=== PATIENT | female | born 1985 | race Caucasian/White ===

== ENCOUNTER 2017-12-10 15:58 | Outpatient (CLI) | payer SELFPAY ==
[2017-12-10 17:23] LABS: Platelet Count 372 X10^3/uL (150-400)
[2017-12-10 17:34] LABS: Aspartate Aminotransferase 19 IU/L (14-36); BUN Creatinine Ratio 18.6 (6-22); Blood Urea Nitrogen 13 mg/dL (7-17); Estimated Glomerular Filt Rate > 60.0 mL/min (>60); Uric Acid 5.6 mg/dL (2.5-6.2)
== END 2017-12-10 18:00 | disposition home or self-care (01) ==
LOC: OB 12-12 14:39
PROVIDERS: PCP Family Medicine; Visit Provider Obstetrics & Gynecology
DX: Z34.03 Encounter for supervision of normal first pregnancy, third trimester (principal); Z3A.36 36 weeks gestation of pregnancy; R51 Headache
CPT/HCPCS: 59025; 59050; 84450; 84550; 85049; G0378; G0379

== ENCOUNTER → 2017-12-13 15:52 | Outpatient (CLI) | payer SELFPAY ==
[2017-12-14 16:36] LABS: Strep Grp B PCR POS for Grp B Strep
== END ==
PROVIDERS: PCP Family Medicine; Visit Provider Specialist
DX: Z34.03 Encounter for supervision of normal first pregnancy, third trimester (principal)
CPT/HCPCS: 87653

== ENCOUNTER 2017-12-18 10:53 | Observation (INO) | payer SELFPAY ==
[2017-12-18] MEDS: TERBUTALINE 1 MG/ML VIAL 0.25 MG SUBCUT (12:00)
--- NOTE | 2017-12-18 12:44 | PM.PROC.1 ---
Procedures Date/Time Date of procedure: 12/18/17 Time of procedure: 12:13 General Procedure description: Patient comes in for attempt at external version. This is her 1st child and she has an EDC of 01/05/2018. She is 37 weeks 3 days. Consent form was reviewed with the patient, as signed, questions answered. Patient received terbutaline subcutaneously. Ultrasound was performed and confirmed breech. Attempt to externally turn the baby for about 15 sec with checking the heart rate of the baby in between x3 was unsuccessful at turning the baby. Patient tolerated the procedure. She will be discharged home after an hour of monitoring. Precautions to call if she has decreased movement, rupture membranes, vaginal bleeding, cramping. We will schedule a section. Complications: none
--- NOTE | 2017-12-18 12:47 | P.PCN_ITS ---
Procedures Date/Time Date of procedure: 12/18/17 Time of procedure: 12:13 General Procedure description: Patient comes in for attempt at external version. This is her 1st child and she has an EDC of 01/05/2018. She is 37 weeks 3 days. Consent form was reviewed with the patient, as signed, questions answered. Patient received terbutaline subcutaneously. Ultrasound was performed and confirmed breech. Attempt to externally turn the baby for about 15 sec with checking the heart rate of the baby in between x3 was unsuccessful at turning the baby. Patient tolerated the procedure. She will be discharged home after an hour of monitoring. Precautions to call if she has decreased movement , rupture membranes, vaginal bleeding, cramping. We will schedule a section. Complications: none
== END 2017-12-18 13:51 | disposition home or self-care (01) ==
PROVIDERS: Admitting Provider Specialist; PCP Family Medicine; Visit Provider Specialist
DX: O32.1XX0 Maternal care for breech presentation, not applicable or unspecified (principal); Z3A.36 36 weeks gestation of pregnancy
CPT/HCPCS: 59025; 59050; 59412; 76815; 96372; G0378; G0379

== ENCOUNTER 2018-01-06 05:49 | Inpatient (IN) | payer SELFPAY ==
[2018-01-06] VITALS (7 sets, daily range): BP systolic 112–129; BP diastolic 64–70; PULSE 71–78; RESP 14–16; TEMP 36.1; O2SAT 95–99
[2018-01-06 07:06] LABS: Add Manual Diff / Slide Review NO; Basophils Percent Auto 0.3 % (0-2); Eosinophils Percent Auto 2.7 % (2-4); Hematocrit 35.2 % (36-46); Hemoglobin 11.7 g/dL (12.0-16.0); Lymphocytes Percent Auto 18.7 % (25-40); Mean Corpuscular HGB Conc 33.2 % (30-36); Mean Corpuscular Hemoglobin 30.2 PG (26-34); Mean Corpuscular Volume 90.9 fL (80-100); Monocytes Percent Auto 5.7 % (3-14); Neutrophils Absolute Auto 9300 /uL (3000-5900); Neutrophils Percent Auto 72.6 % (50-75); Platelet Count 393 X10^3/uL (150-400); Red Blood Cell Count 3.87 X10^6/uL (4.0-5.2); Red Cell Distribution Width 14.3 % (11.6-14.8); White Blood Cell Count 12.8 X10^3/uL (4.5-11.0)
--- NOTE | 2018-01-06 07:29 | PM.OBHP.1 ---
OB HPI Date/Time Date of admission: 01/06/18 Date Patient Seen: 01/06/18 Time Patient Seen: 07:30 History of Present Condition Chief complaint: [id number] : 1 Para: 0 Estimated Date of Delivery: 01/05/18 Narrative: Lulu Busby is a 32 year old female admitted for section at term for breech presentation Indications Operative indications ( section): malpresentation History of Present care: good care Dating criteria: LMP confirmed by 2nd trimester US Ultrasounds: normal mid trimester US Obstetrical complications: none Medical complications: none Preadmission Labs Blood type: O (+) positive -: Antibody screen: negative, GBS status: positive, HBsAG: negative, HIV: negative and RPR/VDLR: negative -: Chlamydia screen: not detected and Gonorrhea screen: not detected -: Rubella: immune PAP: Normal Cell-free DNA: Normal Fasting blood glucose: 98 Evaluation Evaluation Laboratory results: Laboratory Tests 01/06/18 06:45 WBC 12.8 H RBC 3.87 L Hgb 11.7 L Hct 35.2 L MCV 90.9 MCH 30.2 MCHC 33.2 RDW 14.3 Plt Count 393 Neut % (Auto) 72.6 Lymph % (Auto) 18.7 L [place] % (Auto) 5.7 Eos % (Auto) 2.7 Baso % (Auto) 0.3 Neut # (Auto) 9300 H PFSH Medical History Anxiety (Acute) Meds Allergies Allergy/AdvReac Type Severity Reaction Status Date / Time No Known Drug Allergies Allergy Verified 01/06/18 06:37 Review of Systems Review of Systems All systems reviewed & are unremarkable except as noted in HPI and below Exam Vital Signs (past 8 hours): Blood pressure 109/60, pulse 69 Narrative Exam Narrative: HEENT exam within normal limits. Lungs are clear to auscultation and percussion. Heart is regular rate and rhythm no S3-S4 or murmurs. Abdomen is soft, nontender. Fetus is still breech by ultrasound. Extremities without edema, nontender Objective Labs Result Diagrams: 01/06/18 06:45 Labs: Laboratory Results - last 24 hr 01/06/18 06:45 WBC 12.8 H RBC 3.87 L Hgb 11.7 L Hct 35.2 L MCV 90.9 MCH 30.2 MCHC 33.2 RDW 14.3 Plt Count 393 Neut % (Auto) 72.6 Lymph % (Auto) 18.7 L [place] % (Auto) 5.7 Eos % (Auto) 2.7 Baso % (Auto) 0.3 Neut # (Auto) 9300 H Assessment and Plan (1) malpresentation: Qualifiers: malpresentation type: breech Fetus number: single or unspecified fetus Qualified Code(s): O32.1XX0 - Maternal care for breech presentation, not applicable or unspecified Current visit: Yes Status: Acute (2) 39 weeks gestation of : Current visit: Yes Status: Acute Term with persistent breech presentation for planned primary low transverse section.
--- NOTE | 2018-01-06 07:32 | P.HPOB_ITS ---
OB HPI Date/Time Date of admission: 01/06/18 Date Patient Seen: 01/06/18 Time Patient Seen: 07:30 History of Present Condition Chief complaint: [id number] : 1 Para: 0 Estimated Date of Delivery: 01/05/18 Narrative: Lulu Busby is a 32 year old female admitted for section at term for breech presentation Indications Operative indications ( section): malpresentation History of Present care: good care Dating criteria: LMP confirmed by 2nd trimester US Ultrasounds: normal mid trimester US Obstetrical complications: none Medical complications: none Preadmission Labs Blood type: O (+) positive -: Antibody screen: negative, GBS status: positive, HBsAG: negative, HIV: negative and RPR/VDLR: negative -: Chlamydia screen: not detected and Gonorrhea screen: not detected -: Rubella: immune PAP: Normal Cell-free DNA: Normal Fasting blood glucose: 98 Evaluation Evaluation Laboratory results: Laboratory Tests 01/06/18 06:45 WBC 12.8 H RBC 3.87 L Hgb 11.7 L Hct 35.2 L MCV 90.9 MCH 30.2 MCHC 33.2 RDW 14.3 Plt Count 393 Neut % (Auto) 72.6 Lymph % (Auto) 18.7 L [place] % (Auto) 5.7 Eos % (Auto) 2.7 Baso % (Auto) 0.3 Neut # (Auto) 9300 H PFSH Medical History Anxiety (Acute) Meds Allergies Allergy/AdvReac Type Severity Reaction Status Date / Time No Known Drug Allergies Allergy Verified 01/06/18 06:37 Review of Systems Review of Systems All systems reviewed & are unremarkable except as noted in HPI and below Exam Vital Signs (past 8 hours): Blood pressure 109/60, pulse 69 Narrative Exam Narrative: HEENT exam within normal limits. Lungs are clear to auscultation and percussion. Heart is regular rate and rhythm no S3-S4 or murmurs. Abdomen is soft, nontender. Fetus is still breech by ultrasound. Extremities without edema, nontender Objective Labs Result Diagrams: 01/06/18 06:45 Labs: Laboratory Results - last 24 hr 01/06/18 06:45 WBC 12.8 H RBC 3.87 L Hgb 11.7 L Hct 35.2 L MCV 90.9 MCH 30.2 MCHC 33.2 RDW 14.3 Plt Count 393 Neut % (Auto) 72.6 Lymph % (Auto) 18.7 L [place] % (Auto) 5.7 Eos % (Auto) 2.7 Baso % (Auto) 0.3 Neut # (Auto) 9300 H Assessment and Plan (1) malpresentation: Qualifiers: malpresentation type: breech Fetus number: single or unspecified fetus Qualified Code(s): O32.1XX0 - Maternal care for breech presentation, not applicable or unspecified Current visit: Yes Status: Acute (2) 39 weeks gestation of : Current visit: Yes Status: Acute Term with persistent breech presentation for planned primary low transverse section.
[2018-01-06] MEDS: LACTATED RINGERS 1,000 ML 1000 ML IV (07:34)
[2018-01-06] MEDS: CEFAZOLIN 2 GM/100 ML FROZ.PIGGY IV (08:02)
--- NOTE | 2018-01-06 08:27 | SUR.OPER ---
Supine on Padded OR bed, head on pillow, safety belt at thigh, arms secured on padded arm boards at <90 degrees abduction. Bump under right buttock. Legs uncrossed with pillow under knees, gel pad to heels, tape over blanket to lower legs.
--- NOTE | 2018-01-06 08:36 | SUR.OPER ---
heart tones 132 preoperative. live male at 0832
--- NOTE | 2018-01-06 08:38 | SUR.OPER ---
apgars 8/9
--- NOTE | 2018-01-06 09:09 | PM.OP.1 ---
Operative Date/Time/Diagnoses Date of procedure: 01/06/18 Time of procedure: 09:09 Post-op diagnosis: same Procedure & Clinicians Procedure: Primary low-transverse section Same procedure as scheduled: Yes Indications: Term with breech presentation Surgeon: Monica Ashby Associate Financial Planner: Sarah Canales Anesthesia Type: Spinal Operative Notes Findings: Normal tubes ovaries and uterus. Viable male infant Apgars of 8, 9. Weight 7 lb 14 oz Closure Type: primary Specimen(s): none sent Estimated Blood Loss (mL): 300 Blood products transfused: none Procedure in detail: The patient was brought to the operating room where she underwent a spinal for anesthesia. She was placed in a supine position with a left lateral tilt. A Montalvo catheter was placed. Pulsatile stockings were placed and functional throughout the case. 2 g of Ancef were given IV prior to the incision. Warming was in place. The patient was prepped and draped in usual sterile fashion. A low transverse incision was made with a scalpel and the incision was carried down to the fascial layer which was incised transversely with scissors. The midline attachments are superiorly and inferiorly. Some bleeding was controlled Bovie. The rectus muscles were in the midline and the peritoneal incision was made with no damage to internal structures. The peritoneum was incised and superiorly and inferiorly. Bladder blade was placed and a bladder flap was developed and the bladder held away from the lower uterine segment. An incision was made in the uterus with the scalpel and the incision was extended with stretching. The buttocks was elevated out of the abdomen and with fundal pressure. The infant was held in a moist towel delivered to the shoulders. With rotation the arms were released. With fundal pressure the head delivered. The was bulb suctioned for meconium stained fluid and handed off to the warmer. Cord blood was collected. The placenta delivered spontaneously with traction. The uterus was cleaned with clean laps. The uterine incision was closed in 2 layers of 0 chromic suture the first a running locking layer the second an imbricating layer. The bladder peritoneum was repaired with 2-0 Polysorb suture. The gutters were cleaned of any remaining fluids and ovaries and tubes were observed to be normal. Adequate hemostasis was noted. The perineum was closed with 2-0 Polysorb suture. The fascia layer was closed with 0 Polysorb suture with 2 stitches. The incision was irrigated and adequate hemostasis noted. The incision was closed with interrupted 3-0 Polysorb sutures and then a subcuticular stitch of 4-0 Polysorb suture. Steri-Strips were placed. The uterus was massaged to remove any clots. The patient went to recovery room in good condion. Counts of instruments and sponges were correct. Complications: none Condition: stable Disposition: Acute Care Plan for aftercare: Routine post section
[2018-01-06] MEDS: ACETAMINOPHEN IV 1,000 MG/100 ML VIAL 400 MG IV (09:35)
[2018-01-06] MEDS: LACTATED RINGERS 1,000 ML 100 ML IV ×2 (12:15→20:22)
[2018-01-06] MEDS: KETOROLAC 30 MG/ML VIAL IV ×2 (14:54→20:21)
[2018-01-07] MEDS: KETOROLAC 30 MG/ML VIAL IV (03:38)
[2018-01-07] MEDS: OXYCODONE/ACETAMINOPHEN 5/325 TABLET 2 TAB PO ×4 (03:38→19:47)
[2018-01-07 06:05] LABS: Add Manual Diff / Slide Review NO; Basophils Percent Auto 0.4 % (0-2); Eosinophils Percent Auto 2.5 % (2-4); Hematocrit 31.8 % (36-46); Hemoglobin 10.6 g/dL (12.0-16.0); Lymphocytes Percent Auto 13.4 % (25-40); Mean Corpuscular HGB Conc 33.4 % (30-36); Mean Corpuscular Hemoglobin 30.5 PG (26-34); Mean Corpuscular Volume 91.3 fL (80-100); Monocytes Percent Auto 6.7 % (3-14); Neutrophils Absolute Auto 10300 /uL (3000-5900); Platelet Count 324 X10^3/uL (150-400); Red Blood Cell Count 3.49 X10^6/uL (4.0-5.2); Red Cell Distribution Width 14.7 % (11.6-14.8); White Blood Cell Count 13.4 X10^3/uL (4.5-11.0)
--- NOTE | 2018-01-07 08:07 | P.PNOB_ITS ---
Subjective - OB Patient comments: no complaints, pain well controlled, tolerating diet and flatus present baby status: doing well and nursing well feeding status: exclusively breast feeding Narrative: Patient reports she is overall doing well this morning. Catheter has not yet been removed but patient has been up and out of bed. Bleeding is moderate. Pain well controlled. Eating and drinking without difficulty. Passing gas. initiated and reportedly going well. She does have a milk bleb on the left nipple that was present prior to delivery. Date Patient Seen: 01/07/18 Time Patient Seen: 08:03 Exam Vital Signs (past 8 hours): Oxygen Delivery Method Room Air Temperature 98.5? blood pressure 113/74 heart rate 78 respirations 16 Narrative Exam Narrative: General: Awake and alert, no acute distress. HEENT: NCAT, EOMI, moist oral mucosa CV: Regular rate and rhythm, no murmurs, rubs or gallops Lungs: CTAB, no wheezes, rales, or rhonchi Breast: 2 mm white vesicle on the left nipple Abdomen: Lower abdominal dressing intact without drainage. Soft, nontender; bowel tones active; uterus firm 1 cm below umbilicus. Extremities: Warm, 1+ edema of feet only, 2+ pedal pulses bilaterally Objective Labs Result Diagrams: 01/07/18 05:52 Labs: Laboratory Results - last 24 hr 01/07/18 05:52 WBC 13.4 H RBC 3.49 L Hgb 10.6 L Hct 31.8 L MCV 91.3 MCH 30.5 MCHC 33.4 RDW 14.7 Plt Count 324 Neut % (Auto) 77.0 H Lymph % (Auto) 13.4 L [place] % (Auto) 6.7 Eos % (Auto) 2.5 Baso % (Auto) 0.4 Neut # (Auto) 16890 H Assessment & Plan (1) Status post section: Status: Acute Current Visit: Yes (2) malpresentation: Status: Acute Current Visit: Yes (3) 39 weeks gestation of : Status: Acute Current Visit: Yes Plan day: 1 plan OB: routine postop care Comments: 32-year-old postop day one after primary section for breech presentation. Patient doing well. Pain well controlled Remove Montalvo catheter today, encourage patient out of bed support, reassured patient that the milk bleb on her left nipple is benign and likely will resolve spontaneously Anticipate discharge home tomorrow. Time Spent With Patient Total time spent is greater than 50% in coordination of care (as documented) at patient's floor/unit and/or counseling patient: less than 15 minutes
[2018-01-07] MEDS: DOCUSATE 250 MG CAPSULE PO (08:53)
[2018-01-07] MEDS: IBUPROFEN 600 MG TABLET PO (15:44)
[2018-01-07] MEDS: LANOLIN OINT 7 GM 1 APPLIC TOP (16:02)
--- NOTE | 2018-01-07 17:55 | P.PNOB_ITS ---
Subjective - OB Interval history: First day post section Patient comments: no complaints, pain well controlled, tolerating diet and flatus present [place] baby status: doing well [place] feeding status: exclusively breast feeding Date Patient Seen: 01/07/18 Time Patient Seen: 17:54 Exam Vital Signs (past 8 hours): Blood pressure 130/75 pulse is 68, temperature 98.6? Oxygen Delivery Method Room Air Narrative Exam Narrative: Patient's abdomen is soft, nontender. Mild distention. Uterus is firm, at U, appropriately tender. Dressing is intact and dry. Mild lochia. Extremities with +1 edema, nontender. Objective Labs Result Diagrams: 01/07/18 05:52 Labs: Laboratory Results - last 24 hr 01/07/18 05:52 WBC 13.4 H RBC 3.49 L Hgb 10.6 L Hct 31.8 L MCV 91.3 MCH 30.5 MCHC 33.4 RDW 14.7 Plt Count 324 Neut % (Auto) 77.0 H Lymph % (Auto) 13.4 L [place] % (Auto) 6.7 Eos % (Auto) 2.5 Baso % (Auto) 0.4 Neut # (Auto) 50432 H Assessment & Plan (1) Status post section: Status: Acute Current Visit: Yes (2) malpresentation: Status: Acute Current Visit: Yes (3) 39 weeks gestation of : Status: Acute Current Visit: Yes Plan day: 1 plan OB: routine postop care Time Spent With Patient Total time spent is greater than 50% in coordination of care (as documented) at patient's floor/unit and/or counseling patient: less than 15 minutes
[2018-01-08] MEDS: OXYCODONE/ACETAMINOPHEN 5/325 TABLET 2 TAB PO ×2 (07:57→14:34)
[2018-01-08] MEDS: IBUPROFEN 600 MG TABLET PO ×2 (07:58→14:34)
[2018-01-08] MEDS: DOCUSATE 250 MG CAPSULE PO (07:59)
--- NOTE | 2018-01-08 09:29 | P.DS_ITS ---
Discharge Providers Date of admission: 01/06/18 05:49 Primary care physician: Lori Mcfarland MD Consults: 01/06/18 09:52 Consult to Retail Operations Manager Routine Comment: Discharge provider: Monica Ashby MD Summary Date Patient Seen: 01/08/18 Time Patient Seen: 09:26 Hospital Course: Patient underwent a primary low-transverse section for breech presentation. Both and mother doing well. Patient is ambulatory, passing gas. Patient has no signs or symptoms of preeclampsia. She is tolerating regular diet. Blood pressure 120/64, temperature 98.9?, pulse is 78. Abdomen is soft, nontender. Uterus is firm, at U, appropriately tender. Dressing is clean, dry, and intact. Mild lochia. Extremities with +1 edema nontender. Peripartum Data Delivery Method: Section Procedures: Primary low-transverse section for breech presentation complications: none 1: Gender: Male Disposition of : home Discharge Diagnosis (1) Status post section: Status: Acute (2) malpresentation: Status: Acute (3) 39 weeks gestation of : Status: Acute Status at Discharge Functional status at discharge: independent ambulation Overall status at discharge: patient is progressing back to baseline Time Spent with Patient Total time spent providing and/or coordinating discharge services: Less than 30 minutes Objective Labs Result Diagrams: 01/07/18 05:52 Discharge Plan Discharge Plan Patient Disposition: Home Discharge Med Rec/Prescriptions Prescriptions: New oxycodone-acetaminophen 5-325 mg Tablet 2 tab PO Q4HR PRN (Reason: Pain, Severe (7-10)) Qty: 40 RF: 0 ibuprofen 600 mg Tablet 600 mg PO Q6HR PRN (Reason: As Needed For Fever/Mild Pain) Qty: 30 RF: 0 docusate sodium 250 mg Capsule 250 mg PO DAILY Qty: 20 RF: 0 No Action No Known Home Medications RF: 0 Follow up/Referrals: Lori Mcfarland MD [Primary Care Provider] - Monica Ashby MD [Physician] - 1 Week (Incision check) Provider Discharge Instructions Diet: Regular Activity: Nothing in vagina for 4 weeks, do not lift over 20 lb Skin/Wound/Dressing Care Report to your healthcare provider any signs of infection, such as:: chills, fever, increased pain and unusual drainage Dressing: Leave dressing in place until 1 week post exam Discharge Data Primary Care Provider: Lori Mcfarland Attending Provider: Monica Ashby Admit Date/Time: 01/06/18 05:49
[2018-01-08 09:52] VITALS: BP 106/60; BP 130/89; PULSE 78; RESP 16; TEMP 37.3
== END 2018-01-08 15:05 | disposition home or self-care (01) | DRG 766 ==
PROVIDERS: Admitting Provider Specialist; PCP Family Medicine; Visit Provider Specialist
PROC: 10D00Z1 Extraction of Products of Conception, Low, Open Approach (ICD-10-PCS; CPT 59514; principal; 2018-01-06 07:45)
DX: O32.1XX0 Maternal care for breech presentation, not applicable or unspecified (principal); Z3A.39 39 weeks gestation of pregnancy; Z37.0 Single live birth; O77.0 Labor and delivery complicated by meconium in amniotic fluid
CPT/HCPCS: 36415; 59025; 59050; 59514; 59515; 76815; 85025; 86850; 86900; 86901; J0131; J0690; J1885; J2590

== ENCOUNTER → 2020-07-25 16:04 | Outpatient (CLI) | payer OTHER, SELFPAY ==
[2020-07-26 21:41] LABS: Adenovirus F 40/41 Not Detected (Not Detect); Astrovirus Not Detected (Not Detect); Campylobacter Not Detected (Not Detect); Clostridium difficile toxin AB Not Detected (Not Detect); Cryptosporidium Not Detected (Not Detect); Cyclospora cayetanensis Not Detected (Not Detect); Entamoeba histolytica Not Detected (Not Detect); Enteroaggregative E.coli Not Detected (Not Detect); Enteropathogenic E.coli Not Detected (Not Detect); Enterotoxigenic E.coli It/st Not Detected (Not Detect); Giardia lamblia Not Detected (Not Detect); Norovirus GI/GII Not Detected (Not Detect); Plesiomonsa shigelloides Not Detected (Not Detect); Rotavirus A Not Detected (Not Detect); Salmonella Not Detected (Not Detect); Sapovirus Not Detected (Not Detect); Shiga-like toxin-prod E.coli Not Detected (Not Detect); Shigella/Enteroinvasive E.coli Not Detected (Not Detect); Vibrio Not Detected (Not Detect); Vibrio cholerae Not Detected (Not Detect); Yersinia enterocolitica Not Detected (Not Detect)
== END ==
PROVIDERS: PCP Family Medicine; Visit Provider Family Medicine
DX: K52.9 Noninfective gastroenteritis and colitis, unspecified (principal)
CPT/HCPCS: 87507

== ENCOUNTER → 2020-08-01 12:02 | Outpatient (CLI) | payer OTHER, SELFPAY ==
[2020-08-01 21:48] LABS: COVID19 - ORCAS (NP or Nasal) Negative (Negative)
== END ==
PROVIDERS: PCP Family Medicine; Visit Provider Family Medicine
DX: Z01.818 Encounter for other preprocedural examination (principal)
CPT/HCPCS: U0003

== ENCOUNTER → 2020-08-15 13:15 | Outpatient (CLI) | payer OTHER, SELFPAY ==
[2020-08-15 20:32] LABS: COVID19 - ORCAS (NP or Nasal) Negative (Negative)
== END ==
PROVIDERS: PCP Family Medicine; Referring Provider Family Medicine; Visit Provider Family Medicine
DX: Z20.822 Contact with and (suspected) exposure to COVID-19 (principal)
CPT/HCPCS: U0003